=== PATIENT | female | born 1995 | race Caucasian/White ===

== ENCOUNTER 2020-08-06 04:26 | Emergency (ER) | payer OTHER | END 2020-08-06 06:01 | disposition home or self-care (01) | LOC: FER 04:26 | DX: O99.891 Other specified diseases and conditions complicating pregnancy (principal); M71.21 Synovial cyst of popliteal space [Baker], right knee; M25.562 Pain in left knee; Z3A.01 Less than 8 weeks gestation of pregnancy | CPT/HCPCS: 36415; 85379; 99283 ==

== ENCOUNTER 2020-11-27 18:30 | Emergency (ER) | payer OTHER ==
[2020-11-27 20:33] LABS: BILIRUBIN NEGATIVE (NEGATIVE); BLOOD NEGATIVE Ery/uL (NEGATIVE); CLARITY CLEAR (CLEAR); COLOR YELLOW (YELLOW); GLUCOSE (U) NORMAL (NORMAL); LEUKOCYTES NEGATIVE Leu/uL (NEGATIVE); NITRITE NEGATIVE (NEGATIVE); PROTEIN NEGATIVE (NEGATIVE); SPECIFIC GRAVITY 1.025 (1.001-1.030); UROBILINOGEN 0.2 mg/dL (0.2-1.0); pH 6.5 (5.0-9.0)
[2020-11-27 20:44] LABS: BASOPHIL 0.2 % (0-2); HCT 36.8 % (37.0-47.0); HGB 11.9 g/dl (12.5-16.0); LYMPHOCYTE 14.5 % (15-48); MCH 29.9 pg (25.0-31.0); MCHC 32.3 g/dL (32.0-36.0); MCV 92.5 fL (78.0-100.0); MPV 10.6 fL (6.0-9.5); NEUTROPHIL 74.9 % (41-80); NRBC 0; PLT 211 K/uL (150-400); RBC 3.98 M/uL (4.20-5.40); RDW 13.4 % (11.5-14.0); WBC 14.3 K/uL (4.0-10.5)
[2020-11-27 21:01] LABS: ALBUMIN 2.7 g/dL (3.4-5.0); BILIRUBIN - TOTAL 0.2 mg/dL (0.2-1.0); BUN/CREAT RATIO (CALC) 12.8 RATIO; CREATININE 0.47 mg/dL (0.51-0.95); POTASSIUM 3.6 mmol/L (3.5-5.1); TOTAL PROTEIN 6.7 g/dL (6.4-8.2)
== END 2020-11-27 21:50 | disposition home or self-care (01) ==
LOC: FER 18:30
PROVIDERS: Nurse Practitioner Family
DX: O21.2 Late vomiting of pregnancy (principal); Z3A.22 22 weeks gestation of pregnancy
CPT/HCPCS: 36415; 80053; 81003; 85025; J2405; J7030

== ENCOUNTER 2020-11-29 10:39 | Day surgery (SDCO) | payer OTHER ==
[~2020-11-29] VITALS: Ht 182.9 cm; Wt 92.3 kg
[2020-11-29 11:41] LABS: BASOPHIL 0.3 % (0-2); EOSINOPHIL 1.8 % (0-5); HGB 12.5 g/dl (12.5-16.0); LYMPHOCYTE 16.3 % (15-48); MCH 30.3 pg (25.0-31.0); MCHC 32.9 g/dL (32.0-36.0); MCV 92.2 fL (78.0-100.0); MONOCYTE 7.3 % (0-12); MPV 10.6 fL (6.0-9.5); NEUTROPHIL 72.2 % (41-80); NRBC 0; PLT 214 K/uL (150-400); RBC 4.12 M/uL (4.20-5.40); RDW 13.4 % (11.5-14.0); WBC 12.6 K/uL (4.0-10.5)
[2020-11-29 11:55] LABS: ALBUMIN 2.9 g/dL (3.4-5.0); BILIRUBIN - TOTAL 0.2 mg/dL (0.2-1.0); BUN/CREAT RATIO (CALC) 11.8 RATIO; CREATININE 0.51 mg/dL (0.51-0.95); GLOBULIN (CALCULATION) 4.1 g/dL; POTASSIUM 3.6 mmol/L (3.5-5.1)
--- NOTE | 2020-11-29 12:00 | NUR ---
HR CHECKED BY NURIS KHOURY, [id number]
[2020-11-29 12:36] LABS: BILIRUBIN NEGATIVE (NEGATIVE); BLOOD NEGATIVE Ery/uL (NEGATIVE); CLARITY CLEAR (CLEAR); COLOR YELLOW (YELLOW); GLUCOSE (U) NORMAL (NORMAL); LEUKOCYTES NEGATIVE Leu/uL (NEGATIVE); NITRITE NEGATIVE (NEGATIVE); PROTEIN NEGATIVE (NEGATIVE); SPECIFIC GRAVITY 1.025 (1.001-1.030); UROBILINOGEN 0.2 mg/dL (0.2-1.0)
[2020-11-29 12:45] LABS: BACTERIA TRACE; TRANSITIONAL EPITHELIAL CELLS RARE
[2020-11-29 12:46] LABS: AMORPHOUS PHOSPHATE CRYSTALS MODERATE
[2020-11-29] MEDS ORDERED: FOLIC ACID1 MG PO (14:53)
[2020-11-29] MEDS ORDERED: ZOLOFT50 MG PO (14:54)
[2020-11-29] MEDS ORDERED: ZOFRAN4 M1 PO (14:54)
[2020-11-29] MEDS ORDERED: PRENATAL FORMU1 EACH PO (14:54)
[2020-11-29] MEDS ORDERED: VITAMIN D PO (14:55)
--- NOTE | 2020-11-30 03:58 | NUR ---
2000 HEART RATE 156.
--- NOTE | 2020-11-30 11:48 | NUR ---
HEART TONES 124 PER OB NURSE
[2020-11-30] MEDS ORDERED: PEPCID20 MG PO (16:46)
== END 2020-11-30 17:32 | disposition home or self-care (01) ==
LOC: FMS 10:39
PROVIDERS: ADMIT Specialist
DX: O21.1 Hyperemesis gravidarum with metabolic disturbance (principal); Z3A.22 22 weeks gestation of pregnancy; O99.891 Other specified diseases and conditions complicating pregnancy; R10.12 Left upper quadrant pain; Z20.822 Contact with and (suspected) exposure to COVID-19
CPT/HCPCS: 36415; 80053; 81001; 85025; G0378; J2405; J3411; J3475; J7120; U0002

== ENCOUNTER 2021-02-05 19:35 | Emergency (ER) | payer OTHER ==
[~2021-02-05 19:35] MED LIST: FOLIC ACID1 MG PO; PEPCID20 MG PO; PRENATAL FORMU1 EACH PO; VITAMIN D PO; ZOFRAN4 M1 PO; ZOLOFT50 MG PO
[2021-02-05 20:53] LABS: BASOPHIL 0.2 % (0-2); EOSINOPHIL 0 % (0-5); HCT 37.1 % (37.0-47.0); HGB 12.2 g/dl (12.5-16.0); LYMPHOCYTE 11.7 % (15-48); MCH 29.5 pg (25.0-31.0); MCHC 32.9 g/dL (32.0-36.0); MCV 89.6 fL (78.0-100.0); MONOCYTE 6.4 % (0-12); MPV 10.4 fL (6.0-9.5); NEUTROPHIL 79.6 % (41-80); NRBC 0; PLT 152 K/uL (150-400); RBC 4.14 M/uL (4.20-5.40); RDW 14.4 % (11.5-14.0); WBC 6.2 K/uL (4.0-10.5)
[2021-02-05 21:08] LABS: BUN/CREAT RATIO (CALC) 14.8 RATIO; CREATININE 0.54 mg/dL (0.51-0.95); POTASSIUM 3.4 mmol/L (3.5-5.1)
== END 2021-02-06 02:34 | disposition home or self-care (01) ==
LOC: FER 19:35
PROVIDERS: Nurse Practitioner Family
DX: O98.513 Other viral diseases complicating pregnancy, third trimester (principal); U07.1 COVID-19; Z23 Encounter for immunization; Z3A.32 32 weeks gestation of pregnancy
CPT/HCPCS: 36415; 80048; 85025; 87040; J2405; J7030; M0243; Q0169; Q0244

== ENCOUNTER 2021-03-18 20:17 | Inpatient (IN) | payer OTHER ==
[~2021-03-18] VITALS: Ht 182.9 cm; Wt 100.7 kg
[2021-03-18 22:52] LABS: BILIRUBIN NEGATIVE (NEGATIVE); BLOOD NEGATIVE Ery/uL (NEGATIVE); CLARITY HAZY (CLEAR); COLOR YELLOW (YELLOW); GLUCOSE (U) NORMAL (NORMAL); HGB 10.9 g/dl (12.5-16.0); LEUKOCYTES NEGATIVE Leu/uL (NEGATIVE); MCH 29.9 pg (25.0-31.0); MCV 90.7 fL (78.0-100.0); MPV 12.3 fL (6.0-9.5); NITRITE NEGATIVE (NEGATIVE); PROTEIN NEGATIVE (NEGATIVE); RBC 3.64 M/uL (4.20-5.40); RDW 14.2 % (11.5-14.0); SPECIFIC GRAVITY 1.025 (1.001-1.030); UROBILINOGEN 0.2 mg/dL (0.2-1.0); WBC 11.3 K/uL (4.0-10.5)
[2021-03-18 23:03] LABS: ALBUMIN 2.3 g/dL (3.4-5.0); BILIRUBIN - TOTAL 0.2 mg/dL (0.2-1.0); BUN/CREAT RATIO (CALC) 19.6 RATIO; CREATININE 0.51 mg/dL (0.51-0.95); GLOBULIN (CALCULATION) 4.1 g/dL; POTASSIUM 3.8 mmol/L (3.5-5.1); TOTAL PROTEIN 6.4 g/dL (6.4-8.2)
[2021-03-19 07:19] LABS: BILIRUBIN NEGATIVE (NEGATIVE); BLOOD NEGATIVE Ery/uL (NEGATIVE); CLARITY CLEAR (CLEAR); COLOR YELLOW (YELLOW); GLUCOSE (U) NORMAL (NORMAL); LEUKOCYTES NEGATIVE Leu/uL (NEGATIVE); NITRITE NEGATIVE (NEGATIVE); PROTEIN NEGATIVE (NEGATIVE); SPECIFIC GRAVITY 1.025 (1.001-1.030); UROBILINOGEN 0.2 mg/dL (0.2-1.0)
[2021-03-20 06:31] LABS: HCT 29.9 % (37.0-47.0); HGB 9.4 g/dl (12.5-16.0); MCH 29.6 pg (25.0-31.0); MCHC 31.4 g/dL (32.0-36.0); MPV 11.5 fL (6.0-9.5); RBC 3.18 M/uL (4.20-5.40); RDW 14.5 % (11.5-14.0); WBC 11.7 K/uL (4.0-10.5)
[2021-03-21] MEDS ORDERED: PRENATAL FORMU1 EACH PO (07:13)
[2021-03-21] MEDS ORDERED: ACETAMINOPHEN325 MG PO (07:13)
[2021-03-21] MEDS ORDERED: COLACE100 MG PO (07:13)
[2021-03-21] MEDS ORDERED: KETOROLAC TROME10 MG PO (07:13)
[2021-03-21] MEDS ORDERED: FEOSOL325 MG PO (07:18)
== END 2021-03-21 11:25 | disposition home or self-care (01) | DRG 788 ==
LOC: FOD 20:17 → FOB 20:18 → FOD 21:58 → FOB 21:59 → FOD 21:59 → FOB 03-21 11:25
PROVIDERS: ADMIT Specialist
PROC: 10D00Z1 Extraction of Products of Conception, Low, Open Approach (ICD-10-PCS; principal; 2021-03-19 05:30)
DX: O34.211 Maternal care for low transverse scar from previous cesarean delivery (principal); Z37.0 Single live birth; Z3A.37 37 weeks gestation of pregnancy; O99.02 Anemia complicating childbirth; Z20.822 Contact with and (suspected) exposure to COVID-19
CPT/HCPCS: 36415; 80053; 81003; 82947; 84112; 86850; 86900; 86901; 90686; J0456; J0690; J1100; J1170; J1885; J2001; J2250; J2274; J2405; J3010; J7050; J7120; U0002